=== PATIENT | male | born 1995 | race Caucasian/White ===

== ENCOUNTER 2018-02-04 16:21 | Emergency (ER) | payer BC ==
[2018-02-04 16:58] VITALS: TEMP 97.8
[2018-02-04] MEDS ORDERED: KETOROLAC 60 MG/2 ML VIAL IM STA (17:28)
[2018-02-04] MEDS ORDERED: ORPHENADRINE 30 MG/ML 2 ML VIAL IM STA (17:28)
--- NOTE | 2018-02-04 17:44 | ED ---
General Adult HPI - General Chief complaint: Recheck/Abnormal Lab/Rx Stated complaint: Chest Pain, Vision Issues Time Seen by Provider: 02/04/18 16:45 Source: patient, RN notes reviewed Mode of arrival: ambulatory Limitations: no limitations - History of Present Illness Initial comments: This is a 22-year-old male who comes in complaining that he has some neck pain that goes down into his trapezius muscle and some upper left chest pain which is reproducible with palpation. Patient states movement of his arm and shoulder and neck increase the pain. Patient states when he lying in bed and completely relaxes the pain subsides and does not hurt. 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 Patient denies any numbness weakness. Patient denies any anterior chest pain. Patient denies any diaphoretic episodes. Patient denies any difficulty breathing Chase of breath. Patient denies any recent fever chills or cough. Patient denies any trauma or injury to the area - Related Data Home Medications Medication Instructions Recorded Confirmed Escitalopram [Lexapro] 10 mg PO DAILY 03/04/14 07/21/15 Previous Rx's Medication Instructions Recorded Naproxen 500 mg PO Q12HR PRN #20 tab 07/21/15 Cyclobenzaprine [Flexeril] 10 mg PO TID #20 tab 02/04/18 Ibuprofen [Motrin] 600 mg PO Q6HR PRN #20 tab 02/04/18 Allergies Allergy/AdvReac Type Severity Reaction Status Date / Time No Known Allergies Allergy Verified 02/04/18 16:58 Review of Systems ROS Statement: Those systems with pertinent positive or pertinent negative responses have been documented in the HPI. ROS Other: All systems not noted in ROS Statement are negative. Past Medical History Past Medical History: Asthma, Hypertension History of Any Multi-Drug Resistant Organisms: None Reported Past Surgical History: Appendectomy Past Psychological History: Anxiety Smoking Status: Current every day smoker Past Alcohol Use History: Occasional Past Drug Use History: None Reported General Exam - General Exam Comments Initial Comments: GENERAL: Patient is well-developed and well-nourished. Patient is nontoxic and well- hydrated and is in mild distress. ENT: Neck is soft and supple. No significant lymphadenopathy is noted. Oropharynx is clear. Moist mucous membranes. Neck has full range of motion causing pain with looking to the left. EYES: The sclera were anicteric and conjunctiva were pink and moist. Extraocular movements were intact and pupils were equal round and reactive to light. Eyelids were unremarkable. PULMONARY: Unlabored respirations. Good breath sounds bilaterally. No audible rales rhonchi or wheezing was noted. CARDIOVASCULAR: There is a regular rate and rhythm without any murmurs gallops or rubs. SKIN: Skin is clear with no lesions or rashes and otherwise unremarkable. NEUROLOGIC: Patient is alert and oriented x3. Cranial nerves II through XII are grossly intact. Motor and sensory are also intact. Normal speech, volume and content. Symmetrical smile. MUSCULOSKELETAL: Normal extremities with adequate strength and full range of motion. No lower extremity swelling or edema. No calf tenderness. Patient's left upper chest pain by the shoulder was reproduced with palpation and movement of the shoulder. Patient's neck pain was reproduced with patient turning his head to the left. It also is tender to palpation LYMPHATICS: No significant lymphadenopathy is noted PSYCHIATRIC: Normal psychiatric evaluation. Limitations: no limitations Course Vital Signs 02/04/18 16:54 Temperature 97.8 F Pulse Rate 77 Respiratory 18 Rate Blood Pressure 138/75 O2 Sat by Pulse 100 Oximetry Medical Decision Making - Medical Decision Making EKG shows normal sinus rhythm at [address] interval is 148 QRS is 90 QT interval 360 QTC is 385. Patient's EKG shows a little left ventricular hypertrophy. Patient got a shot of Toradol and Norflex in the emergency department and he felt considerably better. Disposition Clinical Impression: Trapezius muscle strain Disposition: HOME SELF-CARE Instructions: Muscle Strain (ED) Prescriptions: Cyclobenzaprine [Flexeril] 10 mg PO TID #20 tab Ibuprofen [Motrin] 600 mg PO Q6HR PRN #20 tab PRN Reason: For pain Is patient prescribed a controlled substance at d/c from ED?: No Referrals: Luis A Pepper DO [Primary Care Provider] - 1-2 days Time of Disposition: 18:25
[2018-02-04 19:24] VITALS: BP 125/47; PULSE 78; RESP 16
== END 2018-02-04 19:20 | disposition home or self-care (01) ==
LOC: EC 16:21
DX: S46.812A Strain of other muscles, fascia and tendons at shoulder and upper arm level, left arm, initial encounter (principal); F41.9 Anxiety disorder, unspecified; F17.200 Nicotine dependence, unspecified, uncomplicated; Z79.899 Other long term (current) drug therapy; X58.XXXA Exposure to other specified factors, initial encounter
CPT/HCPCS: 99284; 96372 ×2; 93005; J2360; J1885

== ENCOUNTER → 2018-05-18 | Outpatient (CLI) | payer BC ==
[2018-05-18 08:49] LABS: T4, Free (Free Thyroxine) 0.89 ng/dL (0.78-2.19)
--- NOTE | 2018-05-18 09:17 | CT ---
EXAMINATION TYPE: CT soft tissue neck w con DATE OF EXAM: 05/18/2018 COMPARISON: None HISTORY: 22-year-old male swelling, mass, lump in neck throat irritation TECHNIQUE: Contiguous axial scanning of the soft tissues of the neck performed with IV Contrast, eufemia ent injected with 100 mL of Isovue 300. Coronal and sagittal reconstructions performed. CT DLP: 807.59 mGycm Automated exposure control for dose reduction was used. FINDINGS: Visualized intracranial structures, orbits and globes, and mastoid air cells appear clear. Paranasal sinuses will be reported separately. Nasopharynx is clear. There is bilateral palatine tonsillar hypertrophy and mild hypertrophy of the lingual tonsils. The pa latine tonsil hypertrophy narrows the airway down to 7 mm. Epiglottis and prevertebral soft tissues are normal. The glottic and subglottic structures as well as the tracheal column and visualized upper lungs are c lear. Some strandy residual thymic tissue is noted. Thyroid gland within normal limits. Parotid glands slightly atrophic but otherwise normal. The right submandibular gland extends slightly lower than the left but otherwise appear relatively symmetric wi thout any surrounding inflammation or evidence for calculus. Some prominent submandibular lymph nodes on both sides measuring up to 6 mm. Scattered prominent but nonenlarged nodes are present on both sides of the neck measuring up to 1.4 cm on the right and 1.2 c m on the left. Otherwise, no suspicious neck masses seen. No osseous destructive lesion. IMPRESSION: 1. PRONOUNCED BILATERAL PALATINE TONSILLAR HYPERTROPHY. THE DEGREE OF TONSILLAR ENLARGEMENT NARROWS T HE OROPHARYNGEAL AIRWAY TO 7 MM. 2. SCATTERED NONENLARGED AND BORDERLINE ENLARGED LYMPH NODES IN THE UPPER NECK MEASURING UP TO 1.4 CM LIKELY REACTIVE. 3. SINUSES REPORTED SEPARATELY.
--- NOTE | 2018-05-18 09:20 | CT ---
EXAMINATION TYPE: CT sinus wo con DATE OF EXAM: 05/18/2018 COMPARISON: None HISTORY: 22-year-old male, sinus pain, chronic sinusitis CT DLP: 807.59 mGycm Automated exposure control for dose reduction was used. TECHNIQUE: Noncontrast axial views of the paranasal sinuses were obtained. Coronal reconstructions pe rformed FINDINGS: PARANASAL SINUSES: There is mild to moderate mucosal thickening throughout the maxillary sinuses and right sphenoid sinu s. Mild mucosal thickening left sphenoid sinus and inferior aspects of the bilateral frontal sinuses. More moderate mucosal thickening throughout the ethmoid air cells. There is no air-fluid level. Reactive cheryl- osteogenesis is not seen. There is no destruction of the osseous dejesus of the paranasal sinuses. THE NASAL CAVITY: The left osteomeatal complex is patent. On the right, there is mucosal thickening at the maxillary an trum. 6 there is leftward nasal septal deviation. Orbits and globes are intact. Visualized mastoid air cells and middle ear cavities are well pneumatized. Reformatted images confirm above findings. IMPRESSION: Moderate chronic pansinusitis greatest involving the ethmoid air cells. Leftward nasal septal deviati on
== END | disposition home or self-care (01) ==
LOC: RADCTMAIN 07:06
PROVIDERS: ATTEND Otolaryngology
DX: J32.4 Chronic pansinusitis (principal); J34.2 Deviated nasal septum; J35.1 Hypertrophy of tonsils; E01.0 Iodine-deficiency related diffuse (endemic) goiter
CPT/HCPCS: 84439; 84443; 86376; 70491; 36415; 70486; Q9967

== ENCOUNTER 2018-07-01 06:15 | Day surgery (SDC) | payer BC ==
[2018-06-28 15:22] VITALS: BMI 34.5
[~2018-07-01 06:15] MED LIST: DEXAMETHASONE SOD PHOSPHATE 4 MG/ML 1 ML VIAL IV ONE; FAMOTIDINE 20 MG/2 ML VIAL IV ONE; LACTATED RINGERS 1,000 ML IV SCH; MORPHINE SULFATE 4 MG/ML SYRINGE IV PRN; ONDANSETRON 4 MG/2 ML VIAL IVP ONE; OXYMETAZOLINE 0.05% NASL SPRAY 1 SPRAY BOTTLE NASAL ONE; ceFAZolin 1,000 MG in DEXTROSE/WATER 1 50ML.BAG IV ONE
[2018-07-01 06:43] VITALS: RESP 16
[2018-07-01] MEDS ORDERED: ONDANSETRON 4 MG/2 ML VIAL IVP ONE ×2 (06:47→10:08)
[2018-07-01] MEDS ORDERED: DEXAMETHASONE SOD PHOS (MDV) 100 MG/10 ML VIAL IVP ONE (06:48)
[2018-07-01] MEDS ORDERED: PROPOFOL 10 MG/ML 20 ML VIAL IV ONE ×2 (07:28)
[2018-07-01] MEDS ORDERED: MIDAZOLAM 2 MG/2 ML VIAL ONE (07:28)
[2018-07-01] MEDS ORDERED: DEXAMETHASONE SOD PHOS (MDV) 100 MG/10 ML VIAL ONE (07:28)
[2018-07-01] MEDS ORDERED: LIDOCAINE 1% INJ 10MG/ML (20 ML MDV) ONE (07:28)
[2018-07-01] MEDS ORDERED: fentaNYL (PF) 50 MCG/ML 2 ML AMP ONE (07:28)
[2018-07-01] MEDS ORDERED: EPINEPHrine 1 MG/ML (MDV) 30 ML VIAL IRRIGATION ONE (07:50)
[2018-07-01] MEDS ORDERED: BUPIVACAIN-EPI 0.5%-1:200,000 30 ML VIAL SQ ONE ×2 (07:50)
[2018-07-01] MEDS ORDERED: LIDOCAINE 1%-EPI 1:100,000 20 ML VIAL SQ ONE ×2 (07:50)
[2018-07-01] MEDS ORDERED: FLUORESCEIN STRIPS 1 MG STRIP MISCELLANE ONE (07:50)
[2018-07-01] MEDS ORDERED: BACITRACIN 500 UNIT/GM OINT 28.4 GM TUBE TOPICAL ONE (08:57)
[2018-07-01] MEDS: HYDROmorphone 1 MG/ML 1 ML SYRINGE IVP ONE ×4 (09:13→09:34)
[2018-07-01 09:17] VITALS: TEMP 98.1
--- NOTE | 2018-07-01 09:48 | P.OP ---
Date of Procedure: 07/01/18 Preoperative Diagnosis: Chronic pansinusitis Deviated nasal septum Bilateral hypertrophy of nasal turbinates. Postoperative Diagnosis: same Procedure(s) Performed: Bilateral functional endoscopic sinus surgery with placement of bilateral propel (dissolvable drug-eluting stents) and intranasal splints Septoplasty Bilateral submucosal resection of inferior turbinates with outfracture and compression. Anesthesia: OTISA Surgeon: Kvng Bowling Estimated Blood Loss (ml): 20 Pathology: other (Sinonasal) Condition: stable Disposition: PACU Indications for Procedure: This patient presented to the office with chronic sinus problems that have been a problem for almost a lifetime. We performed ALLERGY testing he's had multiple antibiotics nasal sprays decongestants for many years with no long- term improvement he continues to have issues with nasal congestion, discolored drainage, anosmia, intermittent facial pain and pressure etc. etc. CAT scan shows chronic pansinusitis. Sinus surgery was recommended. All risks, benefits , and alternative therapies were discussed. Consent was obtained and all questions were answered. Operative Findings: Patient had a significant deviated nasal septum with severe obstruction. Chronic pansinusitis was noted with widespread sinonasal disease, large obstructive inferior turbinates. Description of Procedure: This patient was taken to the operative room and placed in the supine position. A general inhalation anesthetic was administered to the patient by the department of anesthesia with a functioning IV line in place. The patient was monitored throughout the entire case by the department of anesthesia. The eyes were taped shut for protection. The patient was placed in a slight reverse Trendelenburg position. The patient had previously utilize Afrin nasal spray preoperatively. The nose was evaluated and the septum lateral nasal wall and inferior turbinates were injected with lidocaine 1% with epinephrine 1 100,000 bilaterally. Approximately 10 minutes were allowed wait for full vasoconstrictive effects to take place. At this point a caudal incision was made over the caudal portion of the left septum down to the mucoperichondrium. A mucoperichondrial flap was elevated on the left side and dissection was carried with use of tunnels posteriorly. We then made a crossover incision through the cartilage to the contralateral side and for the mucoperichondrial flap development was performed to the extent of visualization on the contralateral side. After the cartilage was freed with use of several crosshatching incisions and removal of some redundant strips of septal cartilage, the septum was straightened and placed back in the midline. The septum was sutured fixated to the ovarian groove. Excellent straightening occurred and the septum was visibly straight. Incision was closed with a 40 rapid Vicryl. We utilized a running nonlocking fashion for closure of the incision. A quilting stitch was used to reapproximate the septal flaps with use of a 40 rapid Vicryl. We then entered the nose with a 0 and 30 Leon sushma endoscope. Previous to this we did inject the lateral nasal wall and middle turbinate and uncinate process with lidocaine 1% with epinephrine 1 100,000. Approximately 10 minutes were allowed wait for full vasoconstrictive effects to take place. With use of a microdebrider and a pediatric backbiter, we took down the uncinate process bilaterally. We then opened the maxillary sinuses bilaterally. We utilized a microdebrider for this and entered the maxillary sinuses and removed diseased tissue. This was done bilaterally. After the maxillary sinuses were opened and the diseased tissue was removed we entered the ethmoid bulla and with use of a microdebrider and up-biting tom and Rochelle, we followed the fovea frontalis through the basal lamella and into the posterior ethmoid air cells and did a total ethmoidectomy. We removed the anterior ethmoid air cells with use of a microdebrider and up-biting boss. After all the anterior ethmoid air cells were removed we did the same in the posterior ethmoid. A total ethmoidectomy was completed in that fashion with removal of all the anterior and posterior ethmoid air cells and diseased tissue. Once the ethmoids cells were all taken down we then entered the sphenoid sinus medially and inferiorly underneath the inferior attachment of the superior turbinate. The sphenoid sinus was opened entered and diseased tissue was removed bilaterally. This was done with a microdebrider and [place]akesley. We then entered the frontal sinuses with a giraffe and up-biting Blakesley entered on the agar nasi cells. We open the frontal sinuses and removed sinus tissue that was diseased. We explored the frontal sinuses bilaterally. To summarize all sinuses were open all sinuses were explored and we remove diseased tissue from the sphenoid maxillary and frontal sinuses. Ethmoid sinuses were opened totally. Xerogel was inserted and minimal bleeding was encountered. We reinspected the skull base there is no signs of any orbital penetration or signs of any intracranial penetration. The sugical site was reinspected after the xerogel was placed and no bleeding was seen. Propel was placed bilaterally. Intranasal splints were inserted and fixated at the end of the case. We utilized Jang nasal splints. There will be removed and the patient returns to the office. Attention was then paid to the inferior turbinates. The bilateral inferior turbinates were hypertrophic and obstructive. We entered the anterior portion of the inferior turbinates with use of a microdebrider. We remove bone and submucosal elements with use of a microdebrider bilaterally. The inferior turbinates underwent a submucosal resection with removal of submucosal tissue and bone. We obtained a much better and normal in size for breathing. The inferior turbinates were then outfractured and compressed with a [employer] nasal elevator. Excellent airway was obtained and was symmetric bilaterally. No bleeding was encountered.
[2018-07-01] MEDS ORDERED: LACTATED RINGERS 1,000 ML IV ONE (09:56)
[2018-07-01] MEDS ORDERED: TRIMETHOBENZAMIDE 100 MG/ML 2 ML VIAL IM STA (11:10)
[2018-07-01 11:56] VITALS: BP 143/86; PULSE 76
== END 2018-07-01 12:27 | disposition home or self-care (01) ==
LOC: OR 06:15
PROVIDERS: ATTEND Otolaryngology
DX: J32.4 Chronic pansinusitis (principal); J34.2 Deviated nasal septum; J34.3 Hypertrophy of nasal turbinates; K21.9 Gastro-esophageal reflux disease without esophagitis; J45.909 Unspecified asthma, uncomplicated; Z87.891 Personal history of nicotine dependence; E11.9 Type 2 diabetes mellitus without complications; Z85.038 Personal history of other malignant neoplasm of large intestine; Z79.1 Long term (current) use of non-steroidal anti-inflammatories (NSAID); Z79.899 Other long term (current) drug therapy; Z88.6 Allergy status to analgesic agent; E66.9 Obesity, unspecified; Z68.34 Body mass index [BMI] 34.0-34.9, adult
CPT/HCPCS: 30520; 31267; 31259; 31253; 30140; 88305; 88300; C2625; J0171; J2250; J3250; J2405; J2001; J3010; J1170; J0690; J1100; J2704

== ENCOUNTER 2019-01-12 10:40 | Day surgery (SDC) | payer BC ==
[2018-12-10 16:22] VITALS: BMI 35.9
[~2019-01-12 10:40] MED LIST changes: -DEXAMETHASONE SOD PHOSPHATE 4 MG/ML 1 ML VIAL IV ONE; -FAMOTIDINE 20 MG/2 ML VIAL IV ONE; +LIDOCAINE 1% 20 ML VIAL (10MG/ML) FOR IV START INTRADERMA PRN; -MORPHINE SULFATE 4 MG/ML SYRINGE IV PRN; -ONDANSETRON 4 MG/2 ML VIAL IVP ONE; -OXYMETAZOLINE 0.05% NASL SPRAY 1 SPRAY BOTTLE NASAL ONE; -ceFAZolin 1,000 MG in DEXTROSE/WATER 1 50ML.BAG IV ONE
[2019-01-12 11:00] VITALS: RESP 16; TEMP 98
[2019-01-12] MEDS ORDERED: PROPOFOL 10 MG/ML 20 ML VIAL IV ONE (11:40)
--- NOTE | 2019-01-12 11:51 | P.GSHP ---
History of Present Illness H&P Date: 01/12/19 Chief Complaint: GERD. This is a 23-year-old male referred from Dr. Luis A Jolley. Patient is today for EGD. He's had issues with GERD. Past Medical History Past Medical History: Asthma, GERD/Reflux, Musculoskeletal Disorder Additional Past Medical History / Comment(s): HX CP 10/2018, W/U NL. hx. sinusitis, back pain History of Any Multi-Drug Resistant Organisms: None Reported Past Surgical History: Appendectomy Additional Past Surgical History / Comment(s): [place] teeth. SINUS SURG. Past Anesthesia/Blood Transfusion Reactions: Family History of Problems w/ Anesthesia, Postoperative Nausea & Vomiting (PONV) Additional Past Anesthesia/Blood Transfusion Reaction / Comment(s): SEVERE PONV. GRANDFATHER HAS PONV. Smoking Status: Current every day smoker - Past Family History Mother Family Medical History: No Reported History Medications and Allergies Home Medications Medication Instructions Recorded Confirmed Type Omeprazole [PriLOSEC] 20 mg PO HS 06/28/18 01/12/19 History buPROPion XL [Wellbutrin Xl] 300 mg PO DAILY 06/28/18 01/12/19 History Baclofen [Lioresal] 10 mg PO HS 12/10/18 01/12/19 History Liquid Antacid 1 dose PO DIRECTED PRN 01/10/19 History Allergies Allergy/AdvReac Type Severity Reaction Status Date / Time No Known Allergies Allergy Verified 01/12/19 10:53 Surgical - Exam Vital Signs Temp Pulse Resp BP Pulse Ox 98 F 86 16 118/71 100 01/12/19 10:59 01/12/19 10:59 01/12/19 10:59 01/12/19 10:59 01/12/19 10:59 - General well developed, well nourished, no distress - Eyes PERRL - ENT normal pinna - Neck no masses - Respiratory normal expansion - Cardiovascular Rhythm: regular - Abdomen Abdomen: soft, non tender Assessment and Plan Assessment: GERD. We'll perform EGD.
--- NOTE | 2019-01-12 11:54 | P.OP ---
Date of Procedure: 01/12/19 Preoperative Diagnosis: GERD Postoperative Diagnosis: GERD Procedure(s) Performed: EGD Anesthesia: MAC Surgeon: Diego Mckeon Pathology: other (Antral, esophagus) Condition: stable Disposition: PACU Description of Procedure: The patient's placed on the endoscopy table in the lateral position. Sealed IV sedation. The gastroscope placed oropharynx passed in the esophagus and into the stomach. Scope was then placed through the pylorus. First and second portion of the duodenum appeared normal. The scope was then brought back the antrum. This was mildly inflamed. A biopsies performed. Scope was then retroflexed and there was no significant hiatal hernia. The GE junction was at 39 7 is. The distal esophagus appeared inflamed. A biopsies performed. The proximal esophagus appeared normal. Scope was withdrawn for patient.
[2019-01-12 12:26] VITALS: BP 119/75; PULSE 89
== END 2019-01-12 12:42 | disposition home or self-care (01) ==
LOC: ORWHC2ENDO 10:40
PROVIDERS: ATTEND Surgery
DX: K21.9 Gastro-esophageal reflux disease without esophagitis (principal); K29.50 Unspecified chronic gastritis without bleeding; F17.200 Nicotine dependence, unspecified, uncomplicated; J45.909 Unspecified asthma, uncomplicated; Z79.899 Other long term (current) drug therapy; F41.9 Anxiety disorder, unspecified
CPT/HCPCS: 88305; 88312; 43239; J2704

== ENCOUNTER 2020-05-03 09:31 | Emergency (ER) | payer BC ==
[2020-05-03] MEDS ORDERED: ACETAMINOPHEN TAB 500 MG TAB PO STA (09:58)
[2020-05-03 09:59] VITALS: BP 136/76; PULSE 107; RESP 14; TEMP 98.3
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
--- NOTE | 2020-05-03 10:19 | XR ---
EXAMINATION TYPE: XR chest 2V DATE OF EXAM: 05/03/2020 COMPARISON: Chest x-ray November 15, 2014 HISTORY: Dyspnea. TECHNIQUE: Frontal and lateral views of the chest are obtained. FINDINGS: Stable somewhat low lung volumes redemonstrated. There is no suspicious new focal air spac e opacity, pleural effusion, or pneumothorax seen. The cardiac silhouette size remains within normal limits. The osseous structures are intact. IMPRESSION: No acute cardiopulmonary process. No significant change from prior.
== END 2020-05-03 10:35 | disposition home or self-care (01) ==
LOC: EC 09:31
DX: S29.012A Strain of muscle and tendon of back wall of thorax, initial encounter (principal); S40.212A Abrasion of left shoulder, initial encounter; S40.819A Abrasion of unspecified upper arm, initial encounter; K21.9 Gastro-esophageal reflux disease without esophagitis; F41.9 Anxiety disorder, unspecified; F17.290 Nicotine dependence, other tobacco product, uncomplicated; Z79.899 Other long term (current) drug therapy; V89.2XXA Person injured in unspecified motor-vehicle accident, traffic, initial encounter; Y92.410 Unspecified street and highway as the place of occurrence of the external cause
CPT/HCPCS: 71046; 99284